=== PATIENT | male | born 2005 | race Caucasian/White ===

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

== ENCOUNTER 2023-07-20 09:20 | Emergency (ER) | payer MEDICAID, SELFPAY ==
[2023-07-20 09:53] VITALS: BP 137/40; PULSE 61; RESP 14; TEMP 36.7; O2SAT 97
--- NOTE | 2023-07-20 09:58 | W.ED.GENAD ---
Discharge Plan Disposition Patient Disposition: Home Discharge Details Clinical Impression: Immunization, tetanus-diphtheria, Laceration of right thumb Primary Care Provider: Louie De La Garza ED Provider: Jann Camejo Home Meds and New Rx's Prescriptions: Continued cyproheptadine 4 mg tablet 4 mg PO QHS Qty: 30 1RF omeprazole magnesium [Acid Marketing Sales Supervisor (omeprazole)] 20 mg capsule,delayed release(DR/EC) 20 mg PO DAILY Qty: 30 1RF Rx Instructions: take 10-15 minutes before eating in the morning ondansetron 4 mg tablet,disintegrating 4 mg PO Q8H PRN PRN (Reason: nausea and vomiting) Qty: 8 0RF Discharge Instructions Instructions: Laceration (ED) Additional Instructions: You were seen in the emergency department for your laceration. Your laceration was closed with Steri-Strips. As we discussed, please keep your laceration clean dry for the next several days. Please bandaged your wound extensively before working. If you develop fevers foul-smelling drainage or any signs of infection, as we discussed, please return to the emergency department. HPI General Date/Time Provider Initiated Documentation: 07/20/23 09:58. HPI Narrative: MDM This is a very well-appearing normothermic and not tachycardic [id number] 18-year-old male with superficial left thumb laceration for which he will receive tetanus immunization and primary closure using Steri-Strips given hemostatic and superficial nature of laceration. Good range of motion in the thumb and no significant trauma so my suspicion is very low for acute osseous abnormalities so will defer plain films at this point time. Given superficial nature of the laceration no indication for primary closure using sutures given hemostatic laceration. Given greater than 5 years since last tetanus immunization and given patient's occupation we will update tetanus status in the ED. No pain out of proportion to suggest necrotizing soft tissue infection. Patient's wound was irrigated extensively in the ED. I have given him return indications including any worsening pain foul-smelling drainage fevers or pus. Otherwise we will proceed with empiric trial of expectant outpatient management. Chronic conditions affecting the care of the patient: N/A History obtained from an outside historian: N/A External record review: [facility] [place] EMR records Medications: N/A Social determinants of health affecting disposition: N/A Management discussed with: N/A Treatment/interventions considered: N/A Response to therapies provided: N/A HPI This is a sofyc-ebbv-jzicnhga previously healthy 18-year-old male arrived to the emergency department via private vehicle in the setting of a laceration he sustained this morning to his left thumb. Patient reports that he works in construction. He was cutting some hilaria with a utility knife. He inadvertently stabbed his left thumb. He received all his immunizations during childhood. He takes no medications. His boss put some iodine under his wound. He was in his usual state of health earlier this morning with no fevers chills nausea vomiting chest pain or shortness of breath. No other injuries. Exam General: Well-appearing in no acute distress speaking in complete sentences. Head: Normocephalic, atraumatic. Eye: Extraocular eye movements intact. No conjunctival injection. No scleral icterus. Ear, nose, mouth, throat: Grossly normal inspection. Normal voice, handling secretions normally. Neck: Trachea midline. Cardiovascular: Well-perfused distal extremities. Respiratory: Nonlabored respiration. Gastrointestinal: Nondistended abdomen. Musculoskeletal: On the palmar aspect of the patient's left thumb there is a superficial approximately 1 cm hemostatic laceration. Laceration does not violate the subcutaneous tissue. Patient is full range of motion in his thumb. Cap refill less than 2 seconds in fingertips of left thumb. 2+ left radial pulse. Skin: Normal for age and race, grossly normal temperature and turgor. No acute rash. Neurologic: Alert and appropriate, no apparent acute deficits. Psychiatric: Mood and manner are appropriate. Grooming and personal hygiene are appropriate. Related Data Home Medications Medication Instructions Recorded Confirmed cyproheptadine 4 mg tablet 4 mg PO QHS #30 tabs 01/25/22 01/25/22 omeprazole magnesium 20 mg 20 mg PO DAILY #30 caps 01/25/22 01/25/22 capsule,delayed release (Acid Marketing Sales Supervisor (omeprazole)) ondansetron 4 mg disintegrating 4 mg PO Q8H PRN PRN nausea and 01/25/22 01/25/22 tablet vomiting #8 tabs Previous Rx's Medication Instructions Recorded cyproheptadine 4 mg tablet 4 mg PO QHS #30 tabs 01/25/22 omeprazole magnesium 20 mg 20 mg PO DAILY #30 caps 01/25/22 capsule,delayed release (Acid Marketing Sales Supervisor (omeprazole)) ondansetron 4 mg disintegrating 4 mg PO Q8H PRN PRN nausea and 01/25/22 tablet vomiting #8 tabs Allergies Allergy/AdvReac Type Severity Reaction Status Date / Time No Known Allergies Allergy Verified 01/25/22 08:47 General Stated Complaint: Laceration WINSOME: 4 PFSH All Active Problems (Updated 07/20/23 @ 10:02 by Jann Camejo MD) Laceration of right thumb (Acute) Immunization, tetanus-diphtheria (Acute) Chronic nausea (Acute) GI eval at [facility] [place] 11/15. Endoscopy pending. GERD (gastroesophageal reflux disease) (Chronic) Medical History Closed fracture of humerus (11/18/12) Constipation (02/01/15) Hematochezia (11/18/12) Separation anxiety (10/21/13) Snoring Snoring (11/18/12) and apnea Vision problem WEARS CONTACTS Family History Mother Healthy adult on routine physical examination Father Healthy adult on routine physical examination Social History (Updated 03/12/22 @ 07:34 by Jenn Rodríguez MD) Smoking/Tobacco Use Status: Never Smoking risk assessment performed?: Yes Alcohol Intake: never Drug use: Never Substance use type: does not use Communication Needs: Corrective Lenses current occupation: Applying to [employer] Pets and animals: Yes (4 cats, 2 dogs) Pets and animals: cat(s) and dog(s) Do you feel safe at home: Yes Do you feel safe in your relationship?: Yes Course Vital Signs Vital signs: Vital Signs Temperature 36.7 C 07/20/23 09:53 Pulse 61 07/20/23 09:53 Respiratory Rate 14 07/20/23 09:53 Blood Pressure 137/40 L 07/20/23 09:53 Pulse Oximetry 97 07/20/23 09:53 Temperature 36.7 C 07/20/23 09:53 Temperature Source Skin 07/20/23 09:53 Pulse 61 07/20/23 09:53 Respiratory Rate 14 07/20/23 09:53 Blood Pressure 137/40 L 07/20/23 09:53 Blood Pressure Position Sitting 07/20/23 09:53 Pulse Oximetry 97 07/20/23 09:53 Oxygen Delivery Method Room Air 07/20/23 09:53 Oxygen Flow Rate 0 07/20/23 09:53 Pain Level 0 07/20/23 09:53 Procedures Laceration Laceration 1: Site: hand Side (If applicable): left Size (cm): 1.0 Description: linear Depth: simple, single layer Pre-repair: wound explored and irrigated extensively Skin layer closed with: other (4 Steri-Strips)
== END 2023-07-20 10:26 | disposition home or self-care (01) ==
PROVIDERS: Emergency Provider Emergency Medicine; PCP Pediatrics
DX: M79.644 Pain in right finger(s) (principal); S61.011A Laceration without foreign body of right thumb without damage to nail, initial encounter; W26.0XXA Contact with knife, initial encounter; Z23 Encounter for immunization
CPT/HCPCS: 90471; 99283

== ENCOUNTER 2024-01-09 07:39 | Emergency (ER) | payer MEDICAID, SELFPAY ==
[2024-01-09 07:40] VITALS: BP 126/46; PULSE 70; RESP 16; TEMP 36.6; O2SAT 100
[2024-01-09 07:45] VITALS: BP 126/46; PULSE 70; RESP 16; TEMP 36.6; O2SAT 100
--- NOTE | 2024-01-09 08:18 | ED.GENADUL_ITS ---
Discharge Plan Disposition Patient Disposition: Home Condition: Good Discharge Details Clinical Impression: Abrasion of cornea, left Primary Care Provider: Louie De La Garza ED Provider: Louie Lowery Home Meds and New Rx's Prescriptions: No Action cyproheptadine 4 mg tablet 4 mg PO QHS Qty: 30 1RF omeprazole magnesium [[facility] (omeprazole)] 20 mg capsule,delayed release(DR/EC) 20 mg PO DAILY Qty: 30 1RF Rx Instructions: take 10-15 minutes before eating in the morning Discharge Instructions Instructions: Corneal Abrasion (ED) Additional Instructions: At this time you have evidence of a small corneal abrasion in your left eye which is likely from the sawdust. Please take the tobramycin and place a thin strip on your left eye every 12 hours for prevention of infection. If you have pain in spite of this you can use the pain medication ketorolac drops, apply 2 drops in the left eye every 6 hours as needed. Please use these for the next 3 to 5 days as needed. If over the next few days that you notice that you still have persistent pain in the eye every morning or throughout the day, please also apply lubricating eyedrops which can be found at your local pharmacy [id number], apply these every night and twice per day. Please follow-up closely with your music librarian for reassessment. Please make sure to always wear protective eyewear to prevent this from happening in the future. If you notice any worsening of your symptoms, or any new symptoms such as vomiting, diarrhea, fever, chills, shortness of breath, chest pain, numbness, weakness, or fainting , please return immediately to the emergency department for reevaluation. Please follow up with your primary care provider as soon as possible for reassessment and reevaluation. As always, it was a pleasure participating in your medical care today. Stand Alone Forms: Work Release Referrals: Mehreen [facility] [Outside] [facility] General Date/Time Provider Initiated Documentation: 01/09/24 08:18 . HPI Narrative: 18-year-old male with no significant past medical history who does wear contact lenses, who presents today for evaluation of left eye irritation. Patient states that they were chopping a lot of wood yesterday with a chop saw, and might have gotten some sawdust in his eye but he is unsure. When he woke up this morning he had significant irritation in the left eye and feels like there is something stuck in it. He denies any vision changes. He denies any deep sided eye pain. Pain is made worse with bright light. He denies worsening of pain when entering a dark room. He denies any other complaints at this time. He takes his contact lenses out every night. Related Data Home Medications Medication Instructions Recorded Confirmed cyproheptadine 4 mg tablet 4 mg PO QHS #30 tabs 01/25/22 01/09/24 omeprazole magnesium 20 mg 20 mg PO DAILY #30 caps 01/25/22 01/09/24 capsule,delayed release ([facility] (omeprazole)) Previous Rx's Medication Instructions Recorded cyproheptadine 4 mg tablet 4 mg PO QHS #30 tabs 01/25/22 omeprazole magnesium 20 mg 20 mg PO DAILY #30 caps 01/25/22 capsule,delayed release ([facility] (omeprazole)) Allergies Allergy/AdvReac Type Severity Reaction Status Date / Time No Known Allergies Allergy Verified 01/09/24 07:45 General Stated Complaint: EyeProblem WINSOME: 4 Review of Systems All systems reviewed & are unremarkable except as noted in HPI and below Exam Narrative Exam Narrative: 1.Const: Well-nourished, Well-developed, appearing stated age 2.Eyes: PERRL, left eye: EOMI, PERRL, Peripheral vision intact. No nystagmus. No clinical signs of septal/orbital cellulitis, no redness around the eye, no proptosis. No hyphema, no signs of trauma around the eye, no periorbital emphysema. No sluggishness of the pupil. No ophthalmoplegia. No afferent pupillary defect. Fluorescein exam is positive for uptake and corneal abrasion in the center. No retained foreign body. No rust ring. Abrasion is mild., negative Ankit sign. Visual acuity is normal. No tenderness on palpation of the eye to suggest glaucoma 3.ENT: Atraumatic external nose and ears. Moist MM. Neck: Symmetric, trachea midline, No thyromegaly. 5.RESP: Unlabored respiratory effort. Clear to auscultation bilaterally. No wheezes rales or rhonchi 6.GI: Soft, Nontender/Nondistended, No hepatosplenomegaly. No guarding or rebound. 7.MSK: Normocephalic/Atraumatic, Extremities w/o deformity or ttp No cyanosis or clubbing, Normal movement of all extremities 8.Skin: Warm, Dry. No rashes or lesions. 9.Neuro: crib tender II-XII grossly intact. Sensation grossly intact, no focal neurologic deficits. 10.Psych: (AAO) x3. Appropriate mood and affect Course Vital Signs Vital signs: Vital Signs Temperature 36.6 C 01/09/24 07:40 Pulse 70 01/09/24 07:40 Respiratory Rate 16 01/09/24 07:40 Blood Pressure 126/46 L 01/09/24 07:40 Pulse Oximetry 100 01/09/24 07:40 Temperature 36.6 C 01/09/24 07:45 Temperature Source Temporal Artery Scan 01/09/24 07:45 Pulse 70 01/09/24 07:45 Respiratory Rate 16 01/09/24 07:45 Respiratory Effort Normal 01/09/24 07:44 Blood Pressure 126/46 L 01/09/24 07:45 Blood Pressure Position Sitting 01/09/24 07:45 Pulse Oximetry 100 01/09/24 07:45 Oxygen Delivery Method Room Air 01/09/24 07:45 Oxygen Flow Rate 0 01/09/24 07:45 Pain Level 10 01/09/24 07:45 Medical Decision Making 18-year-old male with no significant past medical history who does wear contact lenses, who presents today for evaluation of left eye irritation. Patient states that they were chopping a lot of wood yesterday with a chop saw, and might have gotten some sawdust in his eye but he is unsure. When he woke up this morning he had significant irritation in the left eye and feels like there is something stuck in it. He denies any vision changes. He denies any deep sided eye pain. Pain is made worse with bright light. He denies worsening of pain when entering a dark room. He denies any other complaints at this time. He takes his contact lenses out every night. Exam demonstrates well-appearing male, corneal staining reveals uptake in the central aspect right over the pupil, no foreign body. No rust ring. Symptoms and history appear clinically inconsistent with glaucoma/acute angle-closure glaucoma. Because the patient has a contact lens wear he would benefit from antipseudomonal coverage. No evidence of metal foreign body, no indication for tetanus update. Vision otherwise normal. Eversion of the lid shows no evidence of retained foreign body. Symptoms consistent with mild corneal abrasion. Patient will be given tobramycin ointment, ketorolac drops, recommendation for lubricating eyedrops at home as needed. Recommend follow-up with ophthalmology/optometry on an outpatient nonemergent basis in the next week. Discussed red flags for which to return. I have extensively reviewed the treatment plan and discharge instructions with the patient. I have addressed all patient concerns at this time. The patient was made aware of what symptoms to monitor for that would warrant a return to the emergency department. Discussed the plan with the patient, they demonstrate verbal understanding and agreement with our assessment and plan at this time. The documentation in this chart was dictated using [employer] dictation software. Please excuse any dictation errors. Quality:SDOH Health Related Social Needs: No Data to Display PFSH All Active Problems Abrasion of cornea, left (Acute) Chronic nausea (Acute) [place] [facility] [place] Endoscopy pending. GERD (gastroesophageal reflux disease) (Chronic) Medical History Closed fracture of humerus (11/18/12) Constipation (02/01/15) Separation anxiety (10/21/13) Snoring (11/18/12) and apnea Hematochezia (11/18/12) Snoring Vision problem WEARS CONTACTS Family History Mother Healthy adult on routine physical examination Father Healthy adult on routine physical examination Social History Smoking/Tobacco Use Status: Never Smoking risk assessment performed?: Yes Alcohol Intake: never Drug use: Never Substance use type: does not use Communication Needs: Corrective Lenses current occupation: Applying to [employer] Pets and animals: Yes (4 cats, 2 dogs) Pets and animals: cat(s) and dog(s) Do you feel safe at home: Yes Do you feel safe in your relationship?: Yes
[2024-01-09] MEDS: Fluorescein STRIPS 100/BOX 1 MG (08:24)
[2024-01-09] MEDS: Tetracaine 0.5% 4 ML BTL (08:24)
--- NOTE | 2024-01-09 13:52 | NUR.NOTE ---
Referral faxed to [facility] [place] [facility] for corneal abrasion, in 1 week. Provider note also faxed. Nursing Note:
== END 2024-01-09 08:38 | disposition home or self-care (01) ==
PROVIDERS: Emergency Provider Student in an Organized Health Care Education/Training Program; PCP Pediatrics
DX: S05.02XA Injury of conjunctiva and corneal abrasion without foreign body, left eye, initial encounter; X58.XXXA Exposure to other specified factors, initial encounter
CPT/HCPCS: 99283

== ENCOUNTER 2024-03-24 18:39 | Outpatient (CLI) | payer MEDICAID, SELFPAY ==
--- NOTE | 2024-03-24 18:30 | RT.EKG_ITS ---
APPROVED REPORT Exam: Resting ECG Reason for Exam: panic attacks/chest heaviness Patient Location: O HR:52 bpm ECG Measurements Heart Rate 52 AXIS NH 157 P 53 QRSd 110 QRS 20 QT 417 T 52 QTc 388 Conclusion Sinus arrhythmia...V-rate 42- 69, variation>10% Normal Electrocardiogram
== END 2024-03-24 18:40 | disposition home or self-care (01) ==
LOC: DI.CM 18:41
PROVIDERS: PCP Pediatrics; Visit Provider Physician Assistant
DX: F41.9 Anxiety disorder, unspecified (principal); R00.2 Palpitations; I49.8 Other specified cardiac arrhythmias
CPT/HCPCS: 93010

== ENCOUNTER 2024-03-24 19:18 | Outpatient (REF) | payer MEDICAID, SELFPAY ==
[2024-03-24 21:15] LABS: Abs Immature Grans 0.01 10^3/uL (0.0-0.06); Absolute Basophil Count 0.02 10^3/uL (0.0-0.2); Absolute Monocyte Count 0.49 10^3/uL (0.1-0.8); Absolute Neutrophil Count 3.11 10^3/uL (1.2-6.7); Basophils % 0.3 %; Eosinophils % 1.5 %; HCT 45.9 % (40.0-50.0); HGB 16.1 g/dL (13.5-17.5); Immature Grans % 0.1 %; Lymphocytes % 45.4 %; MCH 30.6 pg (27.0-33.0); MCHC 35.1 % (32.0-36.0); MCV 87 fL (80-95); MPV 10.8 fL (8.0-11.0); Monocytes % 7.2 %; Neutrophils % 45.5 %; Platelet Count 176 10^3/uL (130-400); RBC 5.26 10^6/uL (4.36-5.78); RDW 11.9 % (11.8-14.1); RDW-SD 37.9 fL; WBC 6.83 10^3/uL (4.4-10.8)
[2024-03-24 21:36] LABS: ALT 31 U/L (16-63); AST 14 U/L (15-37); Albumin 4.2 g/dL (3.4-5.0); Alkaline Phosphatase 72 U/L (46-116); Anion Gap 8.9 mmol/L (3-11); BUN 16 mg/dL (7-18); Bilirubin, Total 0.67 mg/dL (0.2-1.0); CO2 27.1 mmol/L (21.0-32.0); CREATININE 1.1 mg/dL (0.70-1.30); Calcium 9.3 mg/dL (8.5-10.1); Chloride 107 mmol/L (98-107); Estimated GFR 97.95 (mL/min/1.73m2); Glucose 88 mg/dL (74-106); Potassium 4.2 mmol/L (3.5-5.1); Sodium 143 mmol/L (136-145); TSH (W/Ref FT4) 1.21 uIU/mL (0.36-3.74); Total Protein 7.3 g/dL (6.4-8.2)
[2024-03-26 10:52] LABS: Lyme Ab w Rflx to Lyme Confirm Negative (Negative)
[2024-03-28 13:00] LABS: Anaplasma phagocytophilum Negative (Negative); B. miyamotoi PCR Negative (Negative); Babesia divergens/MO-1 Negative (Negative); Babesia duncani Negative (Negative); Babesia microti Negative (Negative); Ehrlichia chaffeensis Negative (Negative); Ehrlichia ewingii/canis Negative (Negative); Ehrlichia muris eauclairensis Negative (Negative)
== END 2024-03-24 19:19 | disposition home or self-care (01) ==
LOC: LBN 19:18
PROVIDERS: PCP Pediatrics; Visit Provider Physician Assistant
DX: R42 Dizziness and giddiness (principal)
CPT/HCPCS: 80053; 87798; 84443; 85025; 86618

== ENCOUNTER 2024-05-15 02:56 | Outpatient (CLI) | payer MEDICAID, SELFPAY ==
--- NOTE | 2024-05-15 08:32 | DI.CT_ITS ---
Exam(s) CT HEAD WO EXAM: CT HEAD WO CLINICAL HISTORY: Eye exam normal, cont visual disturbance,presyncope,r55,h53.9. TECHNIQUE: Imaging Protocol: Axial computed tomography images with coronal and sagittal reformatted images were created and reviewed COMPARISON: No exams were available for comparison FINDINGS: Ventricles and Extra axial spaces: Normal in size and morphology for the patient's age. Hemorrhage: None. Cerebral parenchyma: No evidence of acute infarct or mass. Midline shift: None. Brainstem/Cerebellum: Normal. Calvarium: Normal. Visualized Paranasal sinuses:Clear. Mastoids: Clear. Soft Tissues: Unremarkable. ORBITS: Unremarkable. PITUITARY: Not enlarged. IMPRESSION: No acute intracranial process. RADIATION DOSE DELIVERED: Total DLP DATA REPOSITORY: All CT scans at this facility are submitted to the National Radiology Data Registry (NRDR) Dose Index Registry (DIR) with the [employer] (ACR). RADIATION OPTIMIZATION: All CT scans at this facility use at least one of these dose optimization te chniques: automated exposure control; mA and/or kV adjustment per patient size (includes targeted exa ms where dose is matched to clinical indication); or iterative reconstruction.
== END 2024-05-15 03:16 ==
LOC: DI 02:56
PROVIDERS: PCP Nurse Practitioner Family; Visit Provider Nurse Practitioner Family
DX: R55 Syncope and collapse (principal)
CPT/HCPCS: 70450

== ENCOUNTER 2024-07-21 15:04 | Emergency (ER) | payer MEDICAID, SELFPAY ==
[2024-07-21 15:10] VITALS: BP 128/76; PULSE 80; RESP 12; TEMP 37.1; O2SAT 98
[2024-07-21] MEDS: Tetracaine 0.5% 4 ML BTL (15:50)
[2024-07-21] MEDS: Fluorescein STRIPS 100/BOX 1 MG OP (15:51)
--- NOTE | 2024-07-21 16:38 | W.ED.GENAD ---
Discharge Plan Disposition Patient Disposition: Home Discharge Details Clinical Impression: Corneal ulcer Primary Care Provider: Pelon Bridges ED Provider: Keyana Tejeda Home Meds and New Rx's Prescriptions: No Action No Known Home Meds Discharge Instructions Instructions: Corneal Ulcer (DC) Additional Instructions: take antibiotic as prescribed do not replace your contacts you must be evaluated by your eye doctor tomorrow wear your glasses for correction return with vision change, worsening pain, or should new concerns arise Referrals: Pelon Bridges, SQL REPORT DEVELOPER [Primary Care Provider] - 1 day Discharge Data Discharge Date/Time-TO BE ENTERED AT DEPARTURE: 07/21/24 16:22 HPI General Date/Time Provider Initiated Documentation: 07/21/24 15:08. HPI Narrative: This 19 yo male presents with physical right eye pain for the past 2 days. Wears contacts and symptoms started while wearing contacts. Denies known trauma but does work with salt less frequently. Denies any vision change. Denies any light sensitivity. Related Data Home Medications ?Medication ?Instructions ?Recorded ?Confirmed Unknown [No Known Home Meds] 05/28/24 07/21/24 Allergies Allergy/AdvReac Type Severity Reaction Status Date / Time No Known Allergies Allergy Verified 07/21/24 15:13 General Stated Complaint: EyeProblem WINSOME: 4 Exam Narrative Exam Narrative: 19-year-old male in no acute distress, no periorbital erythema or proptosis, pupil equal round reactive to light and accommodation, injected conjunctiva, lids everted without obvious foreign body. 2 small areas concerning for ulcerations on the 2 o'clock position on the iris we discussed treatment benefits or risks of the procedure we also discussed. Fairly reasonable result. Patient understands this, reviewed physician for in addition to that we will recommend that she stops taking the Claritin to hopefully reduce the drip. Scattered over the uvula increase chance of rupture yet likewise I yeah no because it changes the base capacity and the job so it does not if it does go out but would be hard for your heart for your ear we will give Symbicort inhaler for her persisting cough. Will transition to azithromycin, and recommended continued NSAID therapy. If the patient does not have improvement over the next few days, we will recommend transitioning to a potential cephalosporin understanding. Discussed red flags which return. Course Vital Signs Vital signs: Vital Signs Temperature 37.1 C 07/21/24 15:10 Pulse 80 07/21/24 15:10 Respiratory Rate 12 07/21/24 15:10 Blood Pressure 128/76 07/21/24 15:10 Pulse Oximetry 98 07/21/24 15:10 Temperature 37.1 C 07/21/24 15:10 Temperature Source Skin 07/21/24 15:10 Pulse 80 07/21/24 15:10 Respiratory Rate 12 07/21/24 15:10 Respiratory Effort Normal 07/21/24 15:48 Blood Pressure 128/76 07/21/24 15:10 Blood Pressure Position Sitting 07/21/24 15:10 Pulse Oximetry 98 07/21/24 15:10 Oxygen Delivery Method Room Air 07/21/24 15:10 Oxygen Flow Rate 0 07/21/24 15:10 Pain Level 7 07/21/24 15:10 Medical Decision Making 27-year-old male presenting with right eye pain. Visual acuity, 20/30 affected eye, 20/40 left eye, bilateral 20-35. Concern for corneal ulcer noted contact lens user, will prescribe tobramycin. I did call [facility] and they are actually able to see the patient in the office in 20 minutes. Patient was discharged from this facility and sent over for ophthalmologic exam. No other concerning findings noted. Return precautions reviewed and patient expressed understanding. Quality:SDOH Health Related Social Needs: No Data to Display PFSH All Active Problems (Updated 07/21/24 @ 16:15 by ELIJAH Morris) Corneal ulcer (Acute) Visual disturbance (Acute) Anxiety (Chronic) Medical History Closed fracture of humerus (11/18/12) Constipation (02/01/15) Separation anxiety (10/21/13) Snoring (11/18/12) and apnea Hematochezia (11/18/12) Snoring Vision problem WEARS CONTACTS Family History Mother Healthy adult on routine physical examination Father Healthy adult on routine physical examination Social History Smoking/Tobacco Use Status: Current every day Tobacco: How many years used: 0 Smoking risk assessment performed?: Yes Alcohol Intake: never Drug use: Never Substance use type: does not use Adopted: No Household members: spouse Housing: house Communication Needs: None and Corrective Lenses Education Level: high school current occupation: [employer] Pets and animals: Yes (4 cats, 2 dogs) Pets and animals: cat(s) and dog(s) Sexually active: Yes Do you think of yourself as: straight/heterosexual Current gender identity: male What is your relationship status?: living with partner How often do you talk on the phone with friends or family?: three or more times per week How often do you get together with friends or relatives?: three or more times per week How often do you attend sabianist or pentecostalism services?: decline to answer Do you belong to any clubs or organized social groups?: no Panel score (0-1 are the most socially isolated patients): 2 What type of physical activity do you participate in: regular exercise Duration: > 90 minutes/day Frequency: daily Barb/Tenriism: Non nondenominational Special barb needs: No Seatbelt use: always Helmet use: Yes Drive intox or ride w/intox horse and wagon driver: No Firearms in home: Yes Firearms unloaded and locked: Yes Do you feel safe at home: Yes Do you feel safe in your relationship?: Yes Victim of physical abuse: No Victim of emotional abuse: No Victim of sexual abuse: No
== END 2024-07-21 16:22 | disposition home or self-care (01) ==
LOC: ER 16:20
PROVIDERS: Emergency Provider Physician Assistant; PCP Nurse Practitioner Family
DX: H57.11 Ocular pain, right eye (principal); H16.001 Unspecified corneal ulcer, right eye
CPT/HCPCS: 99281; 99283

== ENCOUNTER 2024-10-20 13:18 | Outpatient (CLI) | payer MEDICAID, SELFPAY ==
--- NOTE | 2024-10-20 13:15 | RT.EKG_ITS ---
APPROVED REPORT Exam: Resting ECG Reason for Exam: Chest pain Patient Location: O HR:88 bpm ECG Measurements Heart Rate 88 AXIS IN 153 P 64 QRSd 103 QRS -4 QT 349 T 37 QTc 423 Conclusion Sinus rhythm...normal P axis, V-rate 50- 99
== END 2024-10-20 13:19 | disposition home or self-care (01) ==
LOC: DI.CM 13:19
PROVIDERS: PCP Nurse Practitioner Family; Visit Provider Nurse Practitioner Family
DX: R07.9 Chest pain, unspecified (principal)
CPT/HCPCS: 93010

== ENCOUNTER 2024-10-23 09:04 | Outpatient (RCR) | payer MEDICAID, SELFPAY | END 2024-10-24 23:59 | disposition home or self-care (01) | LOC: CARDOPNVT 09:04 | PROVIDERS: PCP Nurse Practitioner Family; Visit Provider Internal Medicine Cardiovascular Disease | DX: R00.0 Tachycardia, unspecified (principal) | CPT/HCPCS: 93225 ==

== ENCOUNTER 2024-10-23 09:10 | Outpatient (CLI) | payer MEDICAID, SELFPAY ==
[2024-10-23 09:31] LABS: ALT 46 U/L (16-63); AST 20 U/L (15-37); Albumin 3.6 g/dL (3.4-5.0); Alkaline Phosphatase 71 U/L (46-116); Anion Gap 7.3 mmol/L (3-11); BUN 12 mg/dL (7-18); Bilirubin, Total 0.43 mg/dL (0.2-1.0); CO2 28.7 mmol/L (21.0-32.0); CREATININE 1.1 mg/dL (0.70-1.30); Calcium 9.1 mg/dL (8.5-10.1); Chloride 107 mmol/L (98-107); Estimated GFR 97.95 (mL/min/1.73m2); Glucose 95 mg/dL (74-106); Sodium 143 mmol/L (136-145); Total Protein 6.9 g/dL (6.4-8.2)
== END 2024-10-23 09:11 | disposition home or self-care (01) ==
LOC: LBO 09:11
PROVIDERS: PCP Nurse Practitioner Family; Visit Provider Nurse Practitioner Family
DX: R00.0 Tachycardia, unspecified (principal)
CPT/HCPCS: 36415; 80053

== ENCOUNTER 2024-10-25 15:58 | Outpatient (RCR) | payer MEDICAID, SELFPAY ==
--- NOTE | 2024-10-28 14:26 | W.HOLTRPT ---
Date of service: 10/28/24 Time of Service: 14:26 Holter Monitor Report Referring Provider:: Pelon Bridges Indications:: Tachycardia Holter Monitor Note: This is a 48-hour Holter monitor. Rhythm throughout was sinus with an average heart rate of 75. Minimum was 40, maximum 135. There were no ventricular dysrhythmias. There were very rare isolated atrial ventricular ectopic beats. There was no atrial fibrillation, no high-grade AV block, no pauses greater than 3 seconds. Symptoms correlated to sinus rhythm in the 70s
== END 2024-11-21 23:59 | disposition home or self-care (01) ==
LOC: CARDOPNVT 15:58
PROVIDERS: PCP Nurse Practitioner Family; Visit Provider Internal Medicine Cardiovascular Disease
DX: R00.0 Tachycardia, unspecified (principal)
CPT/HCPCS: 93226

== ENCOUNTER 2024-12-25 13:09 | Emergency (ER) | payer MEDICAID, SELFPAY ==
[2024-12-25 13:11] VITALS: BP 136/80; PULSE 97; RESP 18; TEMP 36.8; O2SAT 99
--- NOTE | 2024-12-25 13:31 | W.ED.GENAD ---
Discharge Plan Disposition Patient Disposition: Home Condition: Good Discharge Details Clinical Impression: Finger laceration Primary Care Provider: Pelon Bridges ED Provider: Rain Canada Home Meds and New Rx's Prescriptions: No Action No Known Home Meds Discharge Instructions Instructions: Laceration Repair With Stitches ED Additional Instructions: Laceration was closed with stitches today. Numbing medicine should wear off in the next 1 to 2 hours. As we discussed, a portion of this flap is fairly thin and you may lose some of the tissue there. In the meantime, the flap that has been stitched down will act as a dressing. Please keep the bulky dressing in place for next 24 hours. After that, you may apply Band-Aid over the area. You may also use the brace to help with discomfort and prevent injuring the finger further. Please monitor wound for signs infection including redness, warmth, drainage, increased pain, fever/chills. If you develop these or other new/worsening symptoms with the care urgently once again. Otherwise, please return in 1 week for suture removal and wound evaluation. Tylenol and ibuprofen as needed for discomfort. Please take as directed on the packaging. Referrals: Pelon Bridges, UNEMPLOYMENT INSURANCE DIRECTOR [Primary Care Provider] - HPI General Date/Time Provider Initiated Documentation: 12/25/24 13:15. Limitations to Documentation: no limitations. Information obtained by: patient and RN notes reviewed. History of Present Illness 19 year old M presents to the emergency department with the chief complaint of right index finger laceration, described as moderate, Quality is described as sharp, and is localized to the right and upper extremity. Patient reports no radiation. Patient started experiencing this minute(s) and it has been constant. Immobilization improves symptom(s), Movement worsens symptoms . Patient notes no other symptoms.. Patient did receive the following treatments prior to arrival, none Related Data Home Medications ?Medication ?Instructions ?Recorded ?Confirmed Unknown [No Known Home Meds] 05/28/24 12/25/24 Allergies Allergy/AdvReac Type Severity Reaction Status Date / Time No Known Allergies Allergy Verified 12/25/24 13:16 General Stated Complaint: Laceration WINSOME: 4 Review of Systems Constitutional Constitutional: Reports as per HPI, Denies chills and Denies fever(s) Musculoskeletal Musculoskeletal: Reports as per HPI Integumentary/Breasts Skin/Breast: Reports as per HPI Neurologic Neurologic: Reports as per HPI, Denies sensory deficit and Denies paresthesias Exam Const General: cooperative, healthy appearing, comfortable, no acute distress and well developed Nutritional Appearance: average body habitus and well nourished Orientation: alert and awake Resp Effort & Inspection: normal respiratory effort, able to speak in complete sentences and no respiratory distress Cardio Rate: regular rate Rhythm: regular rhythm Skin Trauma: laceration Neuro General: patient alert and patient awake Cognition: normal cognition Speech: speech normal Gait: normal gait Extrem Hand/finger images: 1. right index finger laceration with flap laceration. Active bleeding. Sensory deficits in the V aspect of the flap, sensation intact around and the wound and distal. Full ROM. Capillary refill intact. Deep structures intact. Course Vital Signs Vital signs: Vital Signs Temperature 36.8 C 12/25/24 13:11 Pulse 97 H 12/25/24 13:11 Respiratory Rate 18 12/25/24 13:11 Blood Pressure 136/80 12/25/24 13:11 Pulse Oximetry 99 12/25/24 13:11 Temperature 36.8 C 12/25/24 13:11 Pulse 97 H 12/25/24 13:11 Respiratory Rate 18 12/25/24 13:11 Blood Pressure 136/80 12/25/24 13:11 Pulse Oximetry 99 12/25/24 13:11 Oxygen Delivery Method Room Air 12/25/24 13:11 Oxygen Flow Rate 0 12/25/24 13:11 Procedure Laceration Laceration 1: Date of Procedure: 12/25/24 Time of procedure: 14:08 Provider that performed the procedure: Rain Canada Patient Consented: Verbally Site: hand Side (If applicable): right Description: flap and clean Depth: simple, single layer Local anesthetic: Lidocaine 1% Amount of anesthesia used (mL): 5 Pre-repair:: wound explored, irrigated extensively and deep structures intact Skin layer closed with: nylon Suture size: 5-0 Number of sutures:: 3 Technique: horizontal mattress and simple, interrupted Complications: None Medical Decision Making Patient is a pleasant 19 year old RHD male presenting with c/c of laceration to the right index finger. he sustained laceration at work, cut with box maker paperboard. Denies other injury at the time of the incident. Noted signficant bleeding, has applied dressing. Last tetanus 2022. On exam ,patient appears non-toxic. Exam on the right index finger is signficant for V shaped flap laceration with small amount of active bleeding. He has sensory deficit in the deepest section of the V on the flap side. However, this area is thin, may not be viable- something patient and I discussed. Capillary refill intact. Full ROM. This does not involve the joint. Patient and I discussed risks/benefits of closure. We discussed alternatives and expected procedural steps. He voiced understanding and wants to proceed. Please see procedural note. He tolerated the procedure well. This was completed using standard, sterile technique. No FB or debris noted. This was completed with digitial block. We discussed wound care at length. Bulky dressing applied. Discussed return precaution. He will return in 1 week for wound evaluation and suture removal. All of his quesitons and concerns were addressed, he is in agrement with [facility] plan. Quality:SDCO Health Related Social Needs: No Data to Display [facility] All Active Problems (Updated 12/25/24 @ 14:12 by ELIJAH Will) Finger laceration (Acute) Migraine headache with aura (Acute) Migraine headache without aura (Acute) Chronic headache (Acute) Rapid heart rate (Acute) Visual disturbance (Acute) Anxiety (Chronic) Medical History Closed fracture of humerus (11/18/12) Constipation (02/01/15) Separation anxiety (10/21/13) Snoring (11/18/12) and apnea Hematochezia (11/18/12) Snoring Vision problem WEARS CONTACTS Family History Mother Healthy adult on routine physical examination Father Healthy adult on routine physical examination Social History Smoking/Tobacco Use Status: Current every day Tobacco Type: cigarettes Tobacco: How many years used: 0 Smoking risk assessment performed?: Yes Alcohol Intake: never Drug use: Never Substance use type: does not use Adopted: No Household members: spouse Housing: house Communication Needs: None and Corrective Lenses Education Level: high school current occupation: [employer] Pets and animals: Yes (4 cats, 2 dogs) Pets and animals: cat(s) and dog(s) Sexually active: Yes Do you think of yourself as: straight/heterosexual Current gender identity: male What is your relationship status?: living with partner How often do you talk on the phone with friends or family?: three or more times per week How often do you get together with friends or relatives?: three or more times per week How often do you attend anabaptism or amish services?: decline to answer Do you belong to any clubs or organized social groups?: no Panel score (0-1 are the most socially isolated patients): 2 What type of physical activity do you participate in: regular exercise Duration: > 90 minutes/day Frequency: daily Barb/Mosque: Non hoahaoism Special barb needs: No Seatbelt use: always Helmet use: Yes Drive intox or ride w/intox short haul driver: No Firearms in home: Yes Firearms unloaded and locked: Yes Do you feel safe at home: Yes Do you feel safe in your relationship?: Yes Victim of physical abuse: No Victim of emotional abuse: No Victim of sexual abuse: No PAWSS Have you Been Recently Intoxicated or Drunk Within the Last 30 days?: No Have you Ever Experienced Previous Episodes of Alcohol Withdrawal?: No Have you ever Experienced Withdrawal Seizures?: No Have you ever Experienced Delirium Tremens(DT)s?: No Have you ever undergone Alcohol Rehabilitation Treatment (i.e, inpt ot outpatient treatment programs)?: No Have you ever Experienced Blackouts?: No Have you ever Combined Alcohol with other Downers within the last 90 days?: No Have you ever Combined Alcohol with any other Substance of Abuse during the last 90 days?: No Result: 0
[2024-12-25] MEDS: Lidocaine 1% Multi-Dose 50 ML VIAL (14:20)
== END 2024-12-25 14:25 | disposition home or self-care (01) ==
PROVIDERS: Emergency Provider Physician Assistant; PCP Nurse Practitioner Family
DX: S61.210A Laceration without foreign body of right index finger without damage to nail, initial encounter (principal); W26.0XXA Contact with knife, initial encounter
CPT/HCPCS: 12001; J2003

== ENCOUNTER 2024-12-29 12:45 | Emergency (ER) | payer MEDICAID, SELFPAY ==
[2024-12-29 12:56] VITALS: BP 130/75; PULSE 92; RESP 16; TEMP 36.7; O2SAT 98
--- NOTE | 2024-12-29 14:12 | ED.GENADUL_ITS ---
Discharge Plan Disposition Patient Disposition: Home Condition: Good Discharge Details Clinical Impression: Possible exposure to STI Primary Care Provider: Pelon Bridges ED Provider: Rain [place] Home Meds and New Rx's Prescriptions: No Action No Known Home Meds Discharge Instructions Instructions: Sexually Transmitted Infections ED Additional Instructions: As discussed, your testing should return in the next 5 days. Please use condoms or barrier method if sexually active. Please continue to have routine STI testing. Please return in 3 days for reevaluation of wound on your finger and possible suture removal. If you develop any new/worsening symptoms, please seek care urgently once again. Referrals: Pelon Bridges, BUTTON CUTTING MACHINE OPERATOR [Primary Care Provider] - Discharge Data Discharge Date/Time-TO BE ENTERED AT DEPARTURE: 12/29/24 14:27 HPI General Date/Time Provider Initiated Documentation: 12/29/24 13:08 . Limitations to Documentation: no limitations . Information obtained by: patient and RN notes reviewed . History of Present Illness 19 year old M presents to the emergency department with the chief complaint of requesting STI testing after being exposed to possible GC, Related Data Home Medications ?Medication ?Instructions ?Recorded ?Confirmed Unknown [No Known Home Meds] 05/28/24 12/29/24 Allergies Allergy/AdvReac Type Severity Reaction Status Date / Time No Known Allergies Allergy Verified 12/29/24 13:02 General Stated Complaint: Male Reproductive Problem WINSOME: 4 Review of Systems Constitutional Constitutional: Reports as per HPI, Denies chills and Denies fever(s) Respiratory Respiratory: Denies cough Genitourinary Genitourinary: Reports as per HPI Musculoskeletal Musculoskeletal: Reports as per HPI and Denies back pain Integumentary/Breasts Skin/Breast: Reports as per HPI and Denies rash Exam Const General: cooperative, healthy appearing, comfortable, no acute distress, well developed and well groomed Nutritional Appearance: average body habitus and well nourished Orientation: alert and awake Resp Effort & Inspection: normal respiratory effort and no respiratory distress Course Vital Signs Vital signs: Vital Signs Temperature 36.7 C 12/29/24 12:56 Pulse 92 H 12/29/24 12:56 Respiratory Rate 16 12/29/24 12:56 Blood Pressure 130/75 12/29/24 12:56 Pulse Oximetry 98 12/29/24 12:56 Temperature 36.7 C 12/29/24 12:56 Temperature Source Oral 12/29/24 12:56 Pulse 92 H 12/29/24 12:56 Respiratory Rate 16 12/29/24 12:56 Blood Pressure 130/75 12/29/24 12:56 Blood Pressure Position Sitting 12/29/24 12:56 Pulse Oximetry 98 12/29/24 12:56 Oxygen Delivery Method Room Air 12/29/24 12:56 Oxygen Flow Rate 0 12/29/24 12:56 Medical Decision Making The patient is a pleasant 19-year-old male, to be seen by myself last week for finger laceration. Ever, he presents today requesting STI screening as he was contacted by Gabriela sexual partner who reports that she recently tested positive for gonorrhea. Per patient, this significant other did have several sexual encounters after him so unclear if he may actually have been exposed. He denies any discharge, painful urination, fever/chills penile lesions, penile discomfort or other symptoms. States that he is otherwise feeling well. Urine for gonorrhea chlamydia has been sent. Will call with any positive results. I did discuss this with the patient. I did also evaluate his finger, patient does work with his hands and one of the knots did come slightly loose, this was reinforced with adhesive dressing by nursing staff, Steri-Strip applied. He will return in a few days for suture removal and wound reevaluation. Will contact you with any positive results for his STI testing. He will return sooner with any new or worsening symptoms. All of his questions and concerns were addressed and he is in agreement with this plan. Quality:SDOH Health Related Social Needs: No Data to Display [facility] All Active Problems (Updated 12/29/24 @ 14:15 by ELIJAH Will) Possible exposure to STI (Acute) Finger laceration (Acute) Migraine headache with aura (Acute) Migraine headache without aura (Acute) Chronic headache (Acute) Rapid heart rate (Acute) Visual disturbance (Acute) Anxiety (Chronic) Medical History Closed fracture of humerus (11/18/12) Constipation (02/01/15) Separation anxiety (10/21/13) Snoring (11/18/12) and apnea Hematochezia (11/18/12) Snoring Vision problem WEARS CONTACTS Family History Mother Healthy adult on routine physical examination Father Healthy adult on routine physical examination Social History Smoking/Tobacco Use Status: Current every day Tobacco Type: cigarettes Tobacco: How many years used: 0 Smoking risk assessment performed?: Yes Alcohol Intake: current Alcohol Intake frequency: a few times a month Alcohol type: beer Drug use: Never Substance use type: does not use Adopted: No Household members: spouse Housing: house Communication Needs: None and Corrective Lenses Education Level: high school current occupation: [employer] Pets and animals: Yes (4 cats, 2 dogs) Pets and animals: cat(s) and dog(s) Sexually active: Yes Do you think of yourself as: straight/heterosexual Current gender identity: male What is your relationship status?: living with partner How often do you talk on the phone with friends or family?: three or more times per week How often do you get together with friends or relatives?: three or more times per week How often do you attend adventist or adventist services?: decline to answer Do you belong to any clubs or organized social groups?: no Panel score (0-1 are the most socially isolated patients): 2 What type of physical activity do you participate in: regular exercise Duration: > 90 minutes/day Frequency: daily Barb/Islam: Non tenriism Special barb needs: No Seatbelt use: always Helmet use: Yes Drive intox or ride w/intox 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 Firearms in home: Yes Firearms unloaded and locked: Yes Do you feel safe at home: Yes Do you feel safe in your relationship?: Yes Victim of physical abuse: No Victim of emotional abuse: No Victim of sexual abuse: No PAWSS Have you Been Recently Intoxicated or Drunk Within the Last 30 days?: No Have you Ever Experienced Previous Episodes of Alcohol Withdrawal?: No Have you ever Experienced Withdrawal Seizures?: No Have you ever Experienced Delirium Tremens(DT)s?: No Have you ever undergone Alcohol Rehabilitation Treatment (i.e, inpt ot outpatient treatment programs)?: No Have you ever Experienced Blackouts?: No Have you ever Combined Alcohol with other Downers within the last 90 days?: No Have you ever Combined Alcohol with any other Substance of Abuse during the last 90 days?: No Positive Blood Alcohol level on Presentation? [PCS.BAL]: No Evidence of Increased Autonomic Activity (i.e. HR>120, tremor, sweating, agitation, nausea)?: No Result: 0
[2024-12-30 11:46] LABS: Chlamydia Result Negative (Negative); GC Result Negative (Negative)
== END 2024-12-29 14:27 | disposition home or self-care (01) ==
PROVIDERS: Emergency Provider Physician Assistant; PCP Nurse Practitioner Family
DX: Z20.2 Contact with and (suspected) exposure to infections with a predominantly sexual mode of transmission (principal)
CPT/HCPCS: 87491; 87591; 99282; 99283

== ENCOUNTER 2025-03-31 12:26 | Emergency (ER) | payer MEDICAID, SELFPAY ==
[2025-03-31 13:01] VITALS: O2SAT 99
--- NOTE | 2025-03-31 13:22 | ED.GENADUL_ITS ---
Discharge Plan Disposition Patient Disposition: Home Discharge Details Clinical Impression: Laceration of left thumb Primary Care Provider: Pelon Bridges ED Provider: Jann Camejo Home Meds and New Rx's Prescriptions: Continued sucralfate [Carafate] 1 gram tablet 1 g PO BID Qty: 30 0RF omeprazole 20 mg capsule,delayed release(DR/EC) 20 mg PO DAILY 56 Days Qty: 60 0RF famotidine [Pepcid] 20 mg tablet 20 mg PO BID Qty: 30 0RF amitriptyline 25 mg tablet 25 mg PO QHS Qty: 30 5RF Discharge Instructions Instructions: Laceration Repair With Glue ED Additional Instructions: You were seen in the emergency department for your thumb laceration. This was closed with Steri-Strips. Please do not get your thumb wet for the next 48 hours. Your tetanus was updated 2 years ago so your tetanus was not updated again today. Please return to the emergency department if you develop streaking signs of infection fevers chills nausea or vomiting. HPI General Date/Time Provider Initiated Documentation: 03/31/25 12:52 . HPI Narrative: MDM This is an overall quite well-appearing afebrile not tachycardic 20-year-old male with nondominant left thumb laceration that is hemostatic and relatively superficial which was closed with Steri-Strips and cyanoacrylate glue following copious irrigation in the emergency department and for which patient was discharged with an empiric trial of expectant outpatient management. Tetanus was updated in the past several years so no indication for repeat tetanus immunization. Based on superficial nature of wound I did not feel that it required primary closure with sutures. He had intact range of motion in his thumb throughout abduction adduction flexion and extension and opposition at the MCP joint and flexion and extension at the IP joint. Given superficial laceration and his reassuring motor exam I was not suspicious for any ligamentous injury so I did not feel that he required splinting or orthopedic consult in the emergency department. We discussed return indications including streaking signs of infection foul-smelling drainage fevers or chills. HPI The patient is a 20-year-old male who presents for evaluation of a left thumb injury. He sustained the injury to his left thumb approximately an hour ago while at work, using a utility knife. The knife slipped and penetrated his thumb, causing significant pain, particularly in the joint area. He is right-handed. Exam General: Well-appearing in no acute distress speaking in complete sentences. Head: Normocephalic, atraumatic. Eye: Extraocular eye movements intact. No conjunctival injection. No scleral icterus. Ear, nose, mouth, throat: Grossly normal inspection. Normal voice, handling secretions normally. Neck: Trachea midline. Cardiovascular: Well-perfused distal extremities. Respiratory: Nonlabored respiration. Gastrointestinal: Nondistended abdomen. Musculoskeletal: On the ulnar side of the left thumb just distal to the IP joint there is a hemostatic superficial approximately 1.5 cm laceration. Intact range of motion in his thumb throughout abduction adduction flexion and extension and opposition at the MCP joint and flexion and extension at the IP joint. Left hand warm well-perfused. Skin: Normal for age and race, grossly normal temperature and turgor. No acute rash. Neurologic: Alert and appropriate, no apparent acute deficits. Psychiatric: Mood and manner are appropriate. Grooming and personal hygiene are appropriate. Related Data Home Medications ?Medication ?Instructions ?Recorded ?Confirmed amitriptyline 25 mg tablet 25 mg PO QHS #30 tabs 02/1803/03/25 famotidine 20 mg tablet (Pepcid) 20 mg PO BID #30 tabs 03/03/25 03/31/25 omeprazole 20 mg capsule,delayed 20 mg PO DAILY 8 week s #60 caps 03/03/25 03/31/25 release sucralfate 1 gram tablet (Carafate) 1 g PO BID #30 tab s 03/03/25 03/31/25 Previous Rx's ?Medication ?Instructions ?Recorded amitriptyline 25 mg tablet 25 mg PO QHS #30 tabs 02/18 famotidine 20 mg tablet (Pepcid) 20 mg PO BID #30 tabs 03/03/25 omeprazole 20 mg capsule,delayed 20 mg PO DAILY 8 week s #60 caps 03/03/25 release sucralfate 1 gram tablet (Carafate) 1 g PO BID #30 tab s 03/03/25 Allergies Allergy/AdvReac Type Severity Reaction Status Date / Time No Known Allergies Allergy Verified 03/31/25 13:05 General Stated Complaint: Laceration WINSOME: 4 Course Vital Signs Vital signs: Vital Signs Pulse Oximetry 99 03/31/25 13:01 Pulse Oximetry 99 03/31/25 13:01 Oxygen Delivery Method Room Air 07/08/25 13:01 Oxygen Flow Rate 0 03/31/25 13:01 Procedure Laceration Laceration 1: Date of Procedure: 03/31/25 Time of procedure: 14:00 Provider that performed the procedure: Jann Camejo Patient Consented: Verbally Site: hand Side (If applicable): left Description: linear Skin layer closed with: other (Steri-Strips followed by cyanoacrylate glue) Procedure Description/Note: Patient irrigated extensively at the sink for approximately 1 and half minutes. Wound explored. Tolerated repair well. PFSH All Active Problems (Updated 03/31/25 @ 13:33 by Jann Camejo MD) Laceration of left thumb (Acute) Migraine headache with aura (Acute) Migraine headache without aura (Acute) Chronic headache (Acute) Rapid heart rate (Acute) Visual disturbance (Acute) Anxiety (Chronic) Medical History Closed fracture of humerus (11/18/12) Constipation (02/01/15) Separation anxiety (10/21/13) Snoring (11/18/12) and apnea Hematochezia (11/18/12) Snoring Vision problem WEARS CONTACTS Family History Mother Healthy adult on routine physical examination Father Healthy adult on routine physical examination Social History Smoking/Tobacco Use Status: Current every day Tobacco Type: cigarettes Tobacco: How many years used: 0 Smoking risk assessment performed?: Yes Alcohol Intake: current Alcohol Intake frequency: a few times a week Alcohol type: beer Drug use: Never Substance use type: does not use Adopted: No Household members: spouse Housing: house Communication Needs: None and Corrective Lenses Education Level: high school current occupation: [employer] Pets and animals: Yes (4 cats, 2 dogs) Pets and animals: cat(s) and dog(s) Sexually active: Yes Do you think of yourself as: straight/heterosexual Current gender identity: male What is your relationship status?: living with partner How often do you talk on the phone with friends or family?: three or more times per week How often do you get together with friends or relatives?: three or more times per week How often do you attend orthodoxy or buddhism services?: decline to answer Do you belong to any clubs or organized social groups?: no Panel score (0-1 are the most socially isolated patients): 2 What type of physical activity do you participate in: regular exercise Duration: > 90 minutes/day Frequency: daily Barb/Anabaptist: Non cheondoism Special barb needs: No Seatbelt use: always Helmet use: Yes Drive intox or ride w/intox 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 Firearms in home: Yes Firearms unloaded and locked: Yes Do you feel safe at home: Yes Do you feel safe in your relationship?: Yes Victim of physical abuse: No Victim of emotional abuse: No Victim of sexual abuse: No PAWSS Have you Been Recently Intoxicated or Drunk Within the Last 30 days?: No Have you Ever Experienced Previous Episodes of Alcohol Withdrawal?: No Have you ever Experienced Withdrawal Seizures?: No Have you ever Experienced Delirium Tremens(DT)s?: No Have you ever undergone Alcohol Rehabilitation Treatment (i.e, inpt ot o utpatient treatment programs)?: No Have you ever Experienced Blackouts?: No Have you ever Combined Alcohol with other Downers within the last 90 days?: No Have you ever Combined Alcohol with any other Substance of Abuse during the last 90 days?: No Positive Blood Alcohol level on Presentation? [PCS.BAL]: No Evidence of Increased Autonomic Activity (i.e. HR>120, tremor, sweating, agitation, nausea)?: No Result: 0
[2025-03-31 13:41] VITALS: BP 127/68; PULSE 86; RESP 18; TEMP 36.8; O2SAT 96
== END 2025-03-31 14:08 | disposition home or self-care (01) ==
LOC: ER 13:40
PROVIDERS: Emergency Provider Emergency Medicine; PCP Nurse Practitioner Family
DX: S61.012A Laceration without foreign body of left thumb without damage to nail, initial encounter (principal); W26.0XXA Contact with knife, initial encounter
CPT/HCPCS: 99283; 99282